=== PATIENT | male | born 1965 | race Caucasian/White ===

== ENCOUNTER 2019-05-29 23:02 | Inpatient (IN) | payer OTHER, MEDICAID ==
[~2019-05-29] VITALS: Ht 182.9 cm; Wt 70.0 kg
[~2019-05-29 23:02] MED LIST: FERROUS SULFAT325 M2 PO; HYDROCODONE/APA1 TA1 PO; PAROXETINE HCL20 M1 PO; TIVICAY50 MG PO; TRAVADA PO; TRUVADA1 TAB PO; XAN5 PO; [UNRECOGNIZED DRUG - OTHER] PO
[2019-05-29 23:09] VITALS: Ht 182.9 cm; Wt 70.0 kg
--- NOTE | 2019-05-29 23:16 | NUR ---
PT BIB [facility] FROM HOME S/P FOUND BY BROTHER IN BED. PER MEDIC, PT HAD NOTED TO BE INCONTINENT OF STOOL BY MEDICS. PT STATES 10/10 GENERALIZED PAIN WITH N/V/D, DRY COUGH AND PAINFUL URINATION X 1 WEEK. PT NOTED WITH GENERALIZED WEAKNESS. PT PLACED IN BED WITH MONITOR APPLIED. IVF FROM MEDICS RUNNING TO LFA IV WO. PT NOTED WITH DRY COUGH. PT YELLING 'I NEED WATER' REPEATEDLY. INFORMED PT THE DR HAS TO EXAM HIM FIRST BEFORE HE CAN HAVE ANYTHING PO. EXPLAINED TO PT HE IS RECEIVING FLUIDS VIA IV FOR DEHYDRATION.
[2019-05-30] VITALS (7 sets, daily range): BP systolic 97–133; BP diastolic 58–74
--- NOTE | 2019-05-30 00:29 | NUR ---
BROTHER AT BEDSIDE ASSISTING WITH CARE. RT AT BEDSIDE FOR ABG.
[2019-05-30 00:49] LABS: CALCIUM 8.1 mg/dL (8.5-10.1); CARBON DIOXIDE 22.8 mmol/L (21-32); CHLORIDE SERUM 96 mmol/L (98-107); CREATININE SERUM 1.5 mg/dL (0.7-1.3); GFR1 52 mL/min; GLUCOSE SERUM 117 mg/dL (74-106); POTASSIUM SERUM 3.5 mmol/L (3.5-5.1); SODIUM SERUM 130 mmol/L (136-145)
[2019-05-30 00:52] LABS: BASOPHIL % 0.1 % (0-2); RED CELL DISTRIBUTION WIDTH 13.9 % (11.5-14.5)
[2019-05-30 00:54] LABS: PLATELET COUNT 99 x10^3mcL (130-400)
[2019-05-30 01:01] LABS: ALKALINE PHOSPHATASE 81 U/L (46-116); ALT/SGPT 32 U/L (16-63); AST/SGOT 47 U/L (15-37); BILIRUBIN TOTAL 0.9 mg/dL (0.20-1.00); LIPASE 119 IU/L (73-393); T4(THYROXINE) 7.1 ug/dL (4.7-13.3)
[2019-05-30 01:02] LABS: ALBUMIN 2.5 g/dL (3.4-5.0); CHOLESTEROL 82 mg/dL (<200); HDL CHOLESTEROL 9 mg/dL (40-60); TOTAL PROTEIN, SERUM 8.4 g/dL (6.4-8.2)
--- NOTE | 2019-05-30 01:15 | NUR ---
PT GIVEN BED BATH WITH FRESH LINENS GIVEN.
[2019-05-30 01:17] LABS: microscopic required? YES; urine erythrocyte 3+ (NEGATIVE)
--- NOTE | 2019-05-30 01:47 | NUR ---
REPORT GIVEN TO CARLA RAGLAND.
[2019-05-30 01:52] LABS: AMPHETAMINE QUAL UR NONE DETECTED (See below)
--- NOTE | 2019-05-30 02:13 | NUR ---
PATIENT RECEIVED FROM ER.PUT IN ROOM 236 BAND MADE COMFORTABLE.TELE 4 SR/ST.WILL ADMIT PATIENT.
[2019-05-30 02:50] LABS: PHOSPHOROUS 1.3 mg/dL (2.5-4.9)
[2019-05-30 02:51] LABS: CHOLESTEROL/HDL RATIO 8.7
[2019-05-30 02:57] LABS: FREE T4 1.45 ng/dL (0.76-1.46); FREE THYROXINE INDEX 2.5 ug/dL (1.4-4.5); T3 TOTAL 0.85 ng/mL; T4(THYROXINE) 7.1 ug/dL (4.7-13.3)
--- NOTE | 2019-05-30 03:49 | NUR ---
DR CASTILLO ASKED PATIENT WHAT CODE STAUTUS,PATIENT SAYS DNR.NOTED AND RECORDED.
--- NOTE | 2019-05-30 03:50 | NUR ---
PATIENT ADMISSION ASSESSMENT COMPLETED.UA POSITIVE THC AND OPIATES.PATIENT COUGHING PRODUCTIVELY,NO SPUTUM PRODUCED.REMINDE NPO,CT ABDOMEN IN AM.PATIENT URINAL AT BEDSIDE.MRSA NASAL ISAIAH SENT TO LAB.WILL FOLLOW UP ADMIT ORDER.WILL INITIATE PLAN OF CARE.PATIENT HAS FEVER 104.IVF NS AT 120 NOW.READJUSTED.HAD 4 LITERS IN ER PER RN.ATB ALSO ZITHROMAX GIVEN IN ER.PATIENT WAS BEGGING FOR MSO4.TYLENOL GIVEN PO.ATB ADDITIONAL.WILL INITIATE PLAN OF CARE.
--- NOTE | 2019-05-30 04:39 | NUR ---
PHOS IS LOW ON ADMIT,DR CASTILLO AWARE.ALSO STO STOOL SPECIMEN FOR C DIFF,STOOL CULTURE,STOOL WBC.OB.PATIENT HAS NO BM SINCE ADMIT,WILL PUT SPAECIMEN BOTTLES IN BATHROOM,PATIENT MADE AWARE,HARD OF HEARING,NOT SURE?SELECTIVE?CAN BE MEAN AND NOT COOPERATIVE,REMINDED NPO CT ABDOMEN WITHOUT CONTRAST IN AM.WAS YELLING FOR WATER ON ADMIT,PAIN SHOT.ICE CHIPS GIVEN THEN JUST TO MOISTEN MOUTH,MSO4 GIVEN THEN.
--- NOTE | 2019-05-30 04:43 | NUR ---
BROTHER JOSE WAS HERE ON ADMIT,HELP WITH ANSWERS AND QUESTIONS,MORE PLEASANT THAN PATIENT,HE TAKES CARE OF HIM.HE FOUND HIM IN BED WITH DRY BM,GOTTEN WEAK.POOR APPETITE,PATIENT NOW ON DIETARY CONSULT.
--- NOTE | 2019-05-30 05:59 | NUR ---
I AND O MEASURED.FEVER REMANS THE SAME,ALREADY HAD ATB,BLOOD CULTURE,IVF,TYLENOL,DRAIN TILE PRESS OPERATOR AWARE.STOOL CONTAINER ALREADY IN ROOM,IN CASE HE HAS BM BEFORE SHIFT IS OVER.REMAINS NPO,CT ABDOMEN.
--- NOTE | 2019-05-30 06:07 | NUR ---
COOLING MEASURES,ICE PUT IN FOREHEAD,PATIENT COUGHING PRODUCTIVELY BUT NO SPUTUM SEEN,DRY COUGH.
--- NOTE | 2019-05-30 07:41 | NUR ---
REPORT TAKEN FROM SAMPLE TESTER NURSE AT THE BEDSIDE, PT SLEEPING, MAKING LOUD NOSIES, COUGHING, AND GROWNING. PT DID NOT RESPOND TO HIS NAME WHEN CALLED. CHEST RISE AND FALL OBSERVED, PT INCONTINENT OF LUCILA AT THIS TIME, WILL CHANGE PT'S BEDDING AND CONTINUE TO MONITOR.
--- NOTE | 2019-05-30 09:04 | NUR ---
[address] PT TAKEN DOWN TO CT SCAN AT THIS TIME
--- NOTE | 2019-05-30 09:31 | NUR ---
PT BACK FROM CT SCAN, IN NAD, RESTING AT THIS TIME.
[2019-05-30 10:01] LABS: CALCIUM 7.2 mg/dL (8.5-10.1); CARBON DIOXIDE 21.2 mmol/L (21-32); CHLORIDE SERUM 103 mmol/L (98-107); CREATININE SERUM 1.3 mg/dL (0.7-1.3); GFR1 > 60 mL/min; GLUCOSE SERUM 105 mg/dL (74-106); MAGNESIUM 1.8 mg/dL (1.8-2.4); PHOSPHOROUS 1.4 mg/dL (2.5-4.9); POTASSIUM SERUM 3.2 mmol/L (3.5-5.1); SODIUM SERUM 134 mmol/L (136-145)
[2019-05-30 12:01] LABS: RED CELL DISTRIBUTION WIDTH 14.4 % (11.5-14.5)
--- NOTE | 2019-05-30 12:12 | NUR ---
LAB CALLED TO REPORT CRITICAL LAB VALUES. DR. RED WAS PAGED AND I GAVE REPORT OF ELEVATED VALUES AT THIS TIME. NO NEW ORDERS
[2019-05-30 14:01] LABS: BAND NEUTROPHIL 7 % (0-10); BASOPHIL 0 % (0-2); MONOCYTE 3 % (0-7); SEGMENTED NEUTROPHILS 85 % (37-75); rbc morphology (normal/abnorm) NORMAL (NORMAL)
[2019-05-30 14:45] LABS: PLATELET MORPHOLOGY D
[2019-05-30 14:48] LABS: PLATELET COUNT 33 x10^3mcL (130-400)
[2019-05-30 16:07] LABS: RED CELL DISTRIBUTION WIDTH 13.8 % (11.5-14.5)
[2019-05-30 16:09] LABS: BASOPHIL % 0 % (0-2); PLATELET COUNT 89 x10^3mcL (130-400)
--- NOTE | 2019-05-30 19:20 | NUR ---
RECIEVED PT FROM DAY SHIFT RN IN NO ACUTE DISTRESS. DROWSY BUT AROUSABLE. TELE #4, SR, HR 94. BREATHING E/U. IV TO LFA, PATENT. BED IN LOWEST POSITION, 2 SIDE RAILS UP, CALL LIGHT IN REACH. INSTRUCTED TO CALL FOR ASSISTANCE.
--- NOTE | 2019-05-30 19:35 | NUR ---
REPORT GIVEN TO CAR MECHANIC HELPER NURSE CARE ENDORSED
--- NOTE | 2019-05-31 02:03 | NUR ---
RESTING IN BED WITH EYES CLOSED. BREATHING E/U. NO ACUTE DISTRESS NOTED. WILL CONTINUE TO MONITOR.
[2019-05-31 05:25] VITALS: BP 100/54
--- NOTE | 2019-05-31 07:06 | NUR ---
TEMP 101. ADMINISTERED TYLENOL PER EMAR. NO ACUTE DISTRESS NOTED. WILL ENDORSE TO ONCOMING RN.
--- NOTE | 2019-05-31 07:37 | NUR ---
REPORT TAKEN FROM BIRTH ATTENDANT NURSE, PT RESTING, WOKE TO HEAR REPORT, IN NAD, WILL CONTINUE TO MONITOR.
[2019-05-31 09:03] VITALS: BP 96/61
--- NOTE | 2019-05-31 11:57 | NUR ---
PT FOUND IN BED AT 1100, HOWEVER POOP WAS ON THE FLOOR AND THE PT IV HAD BEEN REMOVED. PT REPORTED THAT HE TRIED TO GET UP TO USE THE RESTROOM AND POOPED ON THE WAY TO THE RESTROOM. PT GOWN WAS OFF AND COVER WERE ON THE END OF THE BED. PT DENIED FALLING OR PAIN FROM TRYING TO GET UP. PT WAS AGAIN ADVISED TO CALL THE NURSE BEFORE GETTING OUT OF BED. PT WAS CLEANED, WELL THE ROOM. I ATTEMPTED TO PLACE AN IV TO THE RIGHT AC BUT WAS UNABLE DUE TO PT MOVEMENT AND AGGITATION, WELL ATTEMPT AT A LATER TIME.
[2019-05-31 12:44] VITALS: BP 145/55
--- NOTE | 2019-05-31 13:40 | NUR ---
1. Recommend continuing clear liquid diet along with Ensure clear TID.
--- NOTE | 2019-05-31 13:40 | NUR ---
Initial Nutrition Assessment: 236T/B WHITNEY MOTA IA HR Dx: generalized weakness, hyponatremia PMHx: HIV/AIDS, HIV dementia, depression, Chronic Diarrhea, Skin Cancer PSHx: Other, Thoracix surgery Labs: NA 134L, K 3.2L, BUN 24H, P 1.4L Meds: Flagyl, phoslo, reglan, zofran Diet: Clear liquid PO Intake: (05/30) breakfast 0% Ht: 182.88 cm (72") Wt: 70 kg (154#) BMI: 20.9 kg/m2 Bed scale: 70 kg IBW: 178# (80.9 kg) %IBW: 86 UBW: unable to access Age: 53/M Food Allergies: NKFA Skin: redness to perianal area Jose: 15 Edema: none GI: loose stools Last BM: 05/31 Trigger: appears underweight/malnourished, N/V/D/ >3d, unintentional wt loss >10# x 1 month, poor PO >3d Per H&P, Pt is a 53 year old male with PMH of HIV/AIDS, HIV dementia, depression, was brought to the ED by ambulance from home after he was found in bed by his brother. Patient complains of generalized weakness associated with nausea, vomiting, diarrhea, and productive cough with white non-bloody sputum, fever, chills. RDN Visit (05/31): Patient was very lethargic and sleepy. ELLYN Warren was at bedside. He said that patient is extremely sleepy and that is patients' baseline therefore communication will not be possible at this time. ELLYN Warren said that patient did not drink anything for breakfast this morning and drank some broth and ensure clear yesterday for dinner. FNS received consult for "HIV" on 05/30/19. Per progress note (05/30) Patient was admitted for sepsis due to acute colitis with AIDS, Still complaining of diarrhea, abdomoinal pian,tingling and burinig in both legs and feet,generalized weaknesss and dry cough. Problem with: N/V/D/C: diarrhea Problems with: Chewing/Swallowing: unable to access Current appetite: unable to access Recent wt change: unable to access %wt change: N/A Vitamin/Supplement use: unable to access Special diet at home: unable to access Physical activity: unable to access Nutrition education given: Not appropriate at this time. Left [facility] handout on "HIV/AIDS managing diarrhea" by bedside for family members. Food-drug interactions: none Education given: no Estimated Nutritional Needs Based on actual body weight 70 kg Energy: 1521-7661 kcal/d (30-35 kcal/kg) - AIDS Protein: 70-105 g/d (1.0-1.5 g/kg) - AIDS Fluid: 6195-3289 ml/d (1 ml/kcal) or per doctor Nutrition Diagnosis 1. Inadequate energy intake related to poor PO as evidenced by documented PO 0% 2. Altered GI function related to AIDS as evidenced by diarrhea. Intervention 1. Recommend continuing clear liquid diet along with Ensure clear TID. Monitor/Evaluate Goal: PO intake at least 75% of estimated needs Monitor: PO intake, Labs, GI function F/U in 2-3 days as high risk 06/02-
[2019-05-31 16:20] VITALS: BP 109/58
--- NOTE | 2019-05-31 17:40 | NUR ---
PATIENTS FAMILY AT THE BEDSIDE, DISCUSSED COLONOSCOPY WITH PT AND HIS BROTHER TO TRY AND OBTAIN CONSENT. THE PT VERBALIZED THAT HE WILL "NOT LIVE THROUGH THE PROCEDURE." HE STATED THAT HE HAS HAD OVER 15 COLONOSCOPY PROCEDURES AND DOES NOT WANT ANOTHER ONE AT THIS TIME. PT ALSO REPORTED THAT HE DOES NOT WANT TO BE IN PAIN. I ADVISED THE PT OF HOW MODERATE SEDATION WORKS AND THAT HE WILL NOT ONLY NO BE IN PAIN, BUT THAT HE WONT REMEMBER MUCH OF THE PROCEDURE ITS SELF. I DID TELL HIM THAT SOME DISCOMFORT MAY OCCUR WITH ANY INVASIVE PROCEDURE, BUT WE OUT GI TEAM IS VERY GOOD AT MINIMIZING DISCOMFORT. I TOLD THE PT AND HIS BROTHER THAT WE WILL GIVE THEM TIME TO CONSIDER THE PROCEDURE AND CHECK AGAIN LATER TO SIGN THE CONSENT.
--- NOTE | 2019-05-31 18:48 | NUR ---
PATIENT TOLERATED TREATMENT WELL DURING THE SHIFT, STILL WITH DIARRHEA, HOWEVER AFEBRILE AT THIS TIME. PT IS REFUSING COLONOSCOPY AT THIS TIME, WILL REPORT TO KNIFE FINISHER NURSE AND ENDORSE CARE.
--- NOTE | 2019-05-31 20:00 | NUR ---
RECEIVED PT IN BED, WITH BROTHER AT THE BEDSIDE. DROWSY, SLOW TO VERBAL RESPONSE. ABLE TO VERBALIZE NEEDS. RESP. EVEN AND UNLABORED. LUNG SOUNDS CLEAR BILAT. ON ROOM AIR, WITH OCCASIONAL NON PRODUCTIVE COUGH, NO ACUTE DISTRESS NOTED. SR/ST ON THE MONITOR, DENIES CP OR PRESSURE. IVF, D51/2NS WITH 20MEQ KCL AT 80ML/HR, INTACT AND INFUSING VIA LW, SITE CLEAR. WITH GEN. WEAKNESS, ABLE TO REPOSITION SELF IN BED. REDNESS TO PERIANAL/SACRAL AREAS, OPTIFOAM APPLIED. CALL LIGHT WITHIN REACH. WILL CONTINUE TO MONITOR.
--- NOTE | 2019-05-31 20:35 | NUR ---
COMPLAINED OF GEN. BODY PAIN, 6/10, AND TEMP ALSO SHOWS 101.6, NORCO PO GIVEN ORDERED. COOLING MEASURES APPLIED. PT REMAINS ON IV ANTIBIOTICS. WILL CONTINUE TO MONITOR.
[2019-05-31 21:45] VITALS: BP 140/73
--- NOTE | 2019-05-31 22:17 | NUR ---
PT DOOZING OF AND ON, STATES PAIN RELIEF. TEMP. RECHECK SHOWS 100.7. WILL CONTINUE TO MONITOR.
--- NOTE | 2019-05-31 23:50 | NUR ---
COMPLAINED OF GEN. BODY PAIN ,05/02, REQUESTING PAIN MED, MEDICATED WITH NORCO PO ORDERED.
--- NOTE | 2019-06-01 | NUR ---
RECEIVED PT IN BED ASLEEP BUT EASILY AROUSABLE.NO DISTRESS NOTED.NO S/S OF PAIN AT THIS TIME. BED IN LOWEST POSITION,CALL LIGHT WITHIN REACH. WILL CONTINUE TO MONITOR.
--- NOTE | 2019-06-01 00:01 | NUR ---
ASSISTED TO BEDSIDE COMMODE FOR BOWEL FUNCTION. GOOD PERICARE RENDERED. KEPT CLEAN AND DRY.
--- NOTE | 2019-06-01 00:05 | NUR ---
PT,S CARE ENDORSED TO ELLYN LACY.
[2019-06-01 04:33] VITALS: BP 119/67
--- NOTE | 2019-06-01 05:15 | NUR ---
PT HAS TEMP 103. MEDICATED TYLENOL 650MG PO ORDERED.INITIATED COOLING MEASURES.WILL CONTINUE TO MONITOR.
--- NOTE | 2019-06-01 05:33 | NUR ---
PT APPEARS TO BE SLEEPING.NO SOB NOTED. NO S/S OF PAIN. MEDICATED TYLENOL FOR FEVER.BED IN LOWEST POSITION,CALL LIGTH WITHIN REACH. WILL CONTINUE TO MONITOR.
[2019-06-01 06:35] LABS: CALCIUM 7.6 mg/dL (8.5-10.1); CARBON DIOXIDE 23.5 mmol/L (21-32); CHLORIDE SERUM 103 mmol/L (98-107); CREATININE SERUM 1.1 mg/dL (0.7-1.3); GFR1 > 60 mL/min; GLUCOSE SERUM 112 mg/dL (74-106); POTASSIUM SERUM 3.4 mmol/L (3.5-5.1); SODIUM SERUM 135 mmol/L (136-145)
[2019-06-01 06:48] LABS: PLATELET COUNT 70 x10^3mcL (130-400); RED CELL DISTRIBUTION WIDTH 14.6 % (11.5-14.5)
[2019-06-01 06:49] LABS: BASOPHIL % 0 % (0-2)
--- NOTE | 2019-06-01 07:03 | NUR ---
CARE ENDORSED TO DAY NURSE CHRIS.
--- NOTE | 2019-06-01 07:03 | NUR ---
RECHECKED TEMP 98.1. WILL CONTINUE TO MONITOR.
--- NOTE | 2019-06-01 07:13 | NUR ---
REPORT TAKEN FROM MAINTENANCE TECH NURSE AT THE BEDSIDE, PT SLEEPING AT THIS TIME AND DID NOT AWAKE FOR REPORT, CHEST RISE AND FALL OBSERVED, FLUIDS RUNNING TO LEFT WRIST, NO SIGNS OF INFILTRATION OBSERVED, WILL CONTINUE TO MONITOR.
--- NOTE | 2019-06-01 08:01 | NUR ---
PT IS NOW CONSENTING TO COLONOSCOPY. PT SIGNED CONSENT FORMS. I CALLED GI LAB AND SPOLE TO CHRIS TO MAKE HER AWARE, I ALSO SPOKE TO DR. FELICIANO TO MAKE HIM AWARE. WILL CONTINUE TO MONITOR. CONSENT ADDED TO CHAT.
[2019-06-01 08:40] VITALS: BP 121/80
[2019-06-01 12:15] VITALS: BP 118/65
[2019-06-01 16:59] VITALS: BP 95/66
--- NOTE | 2019-06-01 19:33 | NUR ---
REPORT GIVEN TO TREAD CUTTER NURSE CARE ENDORSED
--- NOTE | 2019-06-01 19:47 | NUR ---
RECEIVEDA AWAKE, WITH SLOW THOUGHT PROCESS, SLOW TO RESPOMD, HARD OF HEARING. SKIN WARM AND DRY TO TOUCH WITH REDNESS AT THE PERINEAL/SACRAL AREA. JUST [id number] BOWEL PREP 1ST BOTTLE FODR COLONOSCOPY IN AM. IVF D5/12NS WITH 20MEQ KCL AT 80CC/HR INFUSING VIA PERIPHERAL LINE AT THE LEFT WRIST TOLERATING WELL. PAIN LEVEL 2/10, BEARABLE AT THIS TIME. WILL CONTINUE TO MONITOR.
--- NOTE | 2019-06-01 21:00 | NUR ---
DUE MEDCATIOMNS GIVEN AND WELL TOLERATED. TOLERATED ORAL FLUIDS. CALL LIGHT WITHIN REACH.
[2019-06-01 21:41] VITALS: BP 125/76
[2019-06-01 22:00] VITALS: BP 120/70
--- NOTE | 2019-06-01 23:56 | NUR ---
IV ACCESS AT THE LEFT WRIST LEAKING, STARTED A NEW IV ACCESSM AT THE LAC USING G#20 WITH GOOD BLOOD FLOW RETURN. CONTINUES ON ATB IVPB ORDERED. MO ADVERSE REACTION NOTED. 2ND BOTTLE OF THE BOWEL PREP COSUMED. WILL CONTINUE TO MONITOR.
[2019-06-02] VITALS: BP 121/80
--- NOTE | 2019-06-02 06:24 | NUR ---
INSTURCTEDE TO REMAIN NPO FOR COLONOSCOPY TODAY. KEPT CLEAN AND DRY. PT KEEPS ON PULLING OUT IV ACCESS, PT UNCOIOPERATIVE WITH PALN OF CARE.
[2019-06-02 07:07] VITALS: BP 124/83
--- NOTE | 2019-06-02 07:09 | NUR ---
PT PULLED OUT IV ACCESS AT THE LAC AREA FOR THE 5TH TIME, RESTARTED IV G#20 AT THE RIGHT HAND WITH GOOD BLOOD FLOW RETURN. IVF D5 1/2NS WITH 20MEQKCL CONNECTED. KEPT CLEAN AND DRY.
--- NOTE | 2019-06-02 07:15 | NUR ---
RECEIVED PT IN BED, SLEEPING, IN NO APPARENT ACUTE DISTRESS, FOLLOWED VERBAL COMMAND, KLAMATH, FAROESE, RESP EVEN AND NON-LABORED, ON 2L/MIN, CHEST RISE SYMMETRICALLY, ABD FLAT AND NON-TENDER, NPO SINCE MIDNIGHT FOR COLONOSCOPY PROCEDURE AT 0930 ON 06/02, AMBULATORY WITH ASSIST, ABLE TO MOVE ALL EXTREMITIES, INCONTINENT, REDNESS TO SACRO AND PERINEAL AREA, OPTIFIOAM DRESING C/D/I, IV PATENT AND INFUSING WELL, PALP PULSES, CAP REFILL < 3 SECS, SKIN W/D/C, ALL NEEDS MET, SAFETY PROCATION FOLLOWED, CONTINUE TO MONITOR
--- NOTE | 2019-06-02 08:10 | NUR ---
PT IN NO ACUTE DISTRESS, P/U BY GI MASONRY TEACHER FOR COLONOSCOPY APPT, CONTINUE TO MONITOR
[2019-06-02 08:33] VITALS: BP 105/63
--- NOTE | 2019-06-02 10:29 | NUR ---
PT BACK FROM COLONOSCOPY PROCEDURE, IN NO ACUTE RESP DISTRESS, SLEEPING IN BED, LYING TO (L) SIDE, V/S NOTED 92/60 (69), 83, 98% AT 2L/MIN VIA NC, 98.0, 16, CHARGE NURSE AND JENNIR RN AWARE, CONTINUE TO MONITOR
--- NOTE | 2019-06-02 11:09 | NUR ---
I HAVE REVIEWED THE DATA COLLECTION BY ELLYN CHAPMAN (NAME):NAZARIO [place]O ENTERED ON (DATE/TIME):06/02/19 5686 I CONCUR WITH THE DATA AND ANY EXCEPTIONS OR COMMENTS ARE LISTED BELOW:
--- NOTE | 2019-06-02 11:29 | NUR ---
ASSISTED PT TO BSC, VOID X1, ASSISTED BACK TO BED, IN NON ACUTE RESP DISTRESS, SAFETY PRECAUTION FOLLWED, CONTINUE TO MONITOR
--- NOTE | 2019-06-02 11:50 | NUR ---
CALLED AND TALKED TO [id number] PHARMACIST AT [phone] [place] TO CLARIFY HOME MED PRESCRIPTION FOR PT WHEN AT HOME, PER PHARMACIST, PT DID NOT HAVE ANY MED ON HOME MED LIST PRESCRIBED AND REFIL FROM THE FAMILY PHYCICIAN, PT ONLY HAVE LEXAPRO AND TRAZODONE, PER PHARMACIST, PT DID NOT TAKE CERTAIN PAIN MED FOR SEVERAL MONTH, PT DID NOT TAKE NORCO 5/325MG SINCE 11/2018, NO HIV MED WAS PRESCRIBED AND REFILLED AT THIS LOCATION, CHARGE NURSE KEMAR PORTER RN AND BASILIA LOAD TEST MECHANIC MADE AWARE
--- NOTE | 2019-06-02 12:10 | NUR ---
Recommend Neutropenic regular diet w/ Ensure Enlive BID.
--- NOTE | 2019-06-02 12:10 | NUR ---
Follow-up Nutrition Assessment: 236/B WHITNEY MOTA FU HR Dx: generalized weakness, hyponatremia PMHx: HIV/AIDS, HIV dementia, depression, Chronic Diarrhea, Skin Cancer Labs: (06/01) NA 135L, K 3.4L, BG 112H, CA 7.6L Meds: Flagyl, phoslo, reglan, zofran Diet: NPO (planned procedure- colonoscopy) PO Intake: (05/31) lunch, dinner- 40% each (CLD diet) Weights: (05/30) 70 kg, (06/02) 69 kg Skin: redness to perianal/sacral area Jose: 15 I/Os: (06/01) 2980/402 (1088) Edema: none GI: intermittent loose bowel movement Last BM: 05/31 RDN Visit (06/02): Patient was alert and oriented. Patient's diet has been progressed to Regular. Patient was NPO and Clear liquid diet before. Patient had colonoscopy today. Discussed recommendations with PRE SALES ARCHITECT Ivelisse. Patient has poor appetite. Estimated Nutritional Needs Based on actual body weight 70 kg Energy: 2908-3769 kcal/d (30-35 kcal/kg) - AIDS Protein: 70-105 g/d (1.0-1.5 g/kg) - AIDS Fluid: 2834-1578 ml/d (1 ml/kcal) or per doctor Nutrition Diagnosis 1. Inadequate energy intake related to poor PO as evidenced by documented PO 0%. (ongoing) 2. Altered GI function related to AIDS as evidenced by diarrhea.(ongoing) Intervention 1. Recommend Neutropenic regular diet w/ Ensure Enlive BID. Monitor/Evaluate Goal: Have pt meet at least 75% of estimated needs Monitor: PO intake, Labs, GI function F/U in 2-3 days as high risk 06/04-
[2019-06-02] MEDS ORDERED: NORCO1 TA2 PO (12:21)
[2019-06-02] MEDS ORDERED: TRAZODONE50 M1 PO (12:23)
[2019-06-02] MEDS ORDERED: LEXAPRO5 M1 PO (12:23)
--- NOTE | 2019-06-02 12:45 | NUR ---
VISITED BY BROTHER KATI, QUESTIONS ASKED AND ANSWERED, NO FURTHER CONCERNS NEEDED WHEN ASKED, PT HAD LUNCH, ALL NEEDS MET AT THIS TIME, CONTINUE TO MONITOR
[2019-06-02 14:44] VITALS: BP 91/58
--- NOTE | 2019-06-02 15:15 | NUR ---
PT SLEEPING IN BED, IN NO ACUTE DISTRESS, RESP EVEN AND NON-LABORED, SAFETY PROTOCOL [id number], CONTINUE TO MONITOR
--- NOTE | 2019-06-02 16:50 | NUR ---
PT IN BED, INCONTINENT X 1, ASSISTED TO CHANGED AND CLEAN PT, SKIN D/W/C, RESTING IN BED WITH NO ACUTE RESP DISTRESS, ALL NEEDS MET, SAFETY PRECAUTION MET, CONTINUE TO MONITOR
[2019-06-02 17:23] VITALS: BP 91/53
--- NOTE | 2019-06-02 17:24 | NUR ---
PT REQUESTED SPRITE SODA AND PUDDING, RESPECTED, ASSISTED WITH FEEDING AT THIS TIME, CONSUMED 100%, PT RESTING IN BED, IN NO ACUTE DISTRESS, ALL NEEDS MET, SAFETY PROTOCOL FOLLOWED, CONTINUE TO MONITOR
--- NOTE | 2019-06-02 18:13 | NUR ---
PT RESTING IN BED, IN NO ACUTE RESP DISTRESS, NO FACIAL DROOP/SLURRED SPEECH NOTED, RESP EVEN AND NON-LABORED, CHEST RISE SYMMETRICALLY, IV PATENT AN INFUSING WELL, ALL NEEDS MET, MEDINA LIGHT IN REACH, BED AT LOW POSITION, RAILS X2, WILL ENDORSE TO ONCOMING RN
--- NOTE | 2019-06-02 19:30 | NUR ---
RECIEVED PATIENT AT START OF SHIFT ONLY ORIENTED TO HIMSELF AND PLACE. PATIENT APPEARS VERY SLOW AND SLEEPY. PATIENT USED URINAL, DARK HELEN URINE. NO SOB ON 2L NC. LUNGS CTAB. IV IS NOW SALINE LOCKED. OPTIFOAM IN PLACE TO COCCYX. BED LOCKED AND IN LOWEST POSIITON. CALL LIGHT AND BEDSIDE TABLE WITHIN REACH. BED ALARM ON.
[2019-06-02 21:02] VITALS: BP 128/79
--- NOTE | 2019-06-02 23:30 | NUR ---
PATIENT IS AWAKE. OFFERED URINAL AND PROVIDED WITH WATER. IV INFUSING ANTIBIOTICS WITH OUT ERYTHEMA OR INFILTRATION.
[2019-06-03 05:44] VITALS: BP 119/66
[2019-06-03 06:18] LABS: BASOPHIL % 0.3 % (0-2)
[2019-06-03 06:36] LABS: CALCIUM 7.9 mg/dL (8.5-10.1); CARBON DIOXIDE 19.4 mmol/L (21-32); CHLORIDE SERUM 104 mmol/L (98-107); CREATININE SERUM 0.9 mg/dL (0.7-1.3); GFR1 > 60 mL/min; GLUCOSE SERUM 94 mg/dL (74-106); SODIUM SERUM 134 mmol/L (136-145)
--- NOTE | 2019-06-03 06:41 | NUR ---
PATIENT SLEPT WELL THROUGH THE NIGHT. SAFETY AND COMFORT MAINTAINED THROUGHOUT SHIFT. IV IS SALINE LOCKED AND PATENT. BED LOCKED AND IN LOWEST POSIITON. BED ALARM ON. WILL ENDORSE CARE TO DAY SHIFT NURSE.
--- NOTE | 2019-06-03 07:00 | NUR ---
RECEIVED PT FROM HISTORY FACULTY MEMBER NURSE. PT IN BED SLEEPING, AROUSABLE, RESP E/U ON NC RESERVOIR AT 2 LPM. NO ACUTE DISTRESS NOTED. IV TO LAC W/ NO SIGNS OF INFILTRATION, IVF INFUSING WELL. BED IN LOWEST POSITION AND CALL LIGHT WITHIN REACH. WILL CONTINUE TO MONITOR.
[2019-06-03 07:17] LABS: PLATELET COUNT 62 x10^3mcL (130-400); RED CELL DISTRIBUTION WIDTH 14.7 % (11.5-14.5)
--- NOTE | 2019-06-03 08:25 | NUR ---
PT TEMP 100.5 AT THIS TIME. NO PAIN OR N/V NOTED. MEDICATED ORDERED W/ PRN TYLENOL. COOLING MEASURES IMPLEMENTED. WILL CONTINUE TO MONITOR.
[2019-06-03 08:29] VITALS: BP 111/57
--- NOTE | 2019-06-03 12:51 | NUR ---
PT REFUSED MEDS AT THIS TIME. ENCOURAGED TO EAT LUNCH BUT HAD NO APPETITE, STATED HE JUST WANTED TO REST. PT AOX2, APPEARED DROWSY, RESP E/U ON RA. BED IN LOWEST POSITION AND CALL LIGHT WITHIN REACH. WILL CONTINUE TO MONITOR.
--- NOTE | 2019-06-03 13:00 | NUR ---
PT SALINE LOCKED, ASSISTED TO WHEELCHAIR, BROUGHT DOWN FOR CT-SCAN AT THIS TIME.
[2019-06-03 16:58] VITALS: BP 95/57
--- NOTE | 2019-06-03 17:45 | NUR ---
PT RESTING IN BED, AOX2, LETHARGIC, RESP E/U ON RA. ASSISTED W/ INCONTINENCE CARE AT THIS TIME, MODERATE AMOUNT OF SOFT, DARK BROWN BM NOTED. Z-GUARD APPLIED TO PERINEUM. CALM AND COMPLIANT W/ MED ADMINISTRATION. BED IN LOWEST POSITION AND CALL LIGHT WITHIN REACH. FAMILY MEMBER ASSISTING PT W/ DINNER. WILL ENDORSE TO ONCOMING NURSE.
--- NOTE | 2019-06-03 19:15 | NUR ---
CARE ASSUMED FROM OUTGOING RN. PT ASLEEP IN BED. NO ACUTE DISTRESS NOTED. EVEN AND UNLABORED RESPIRATIONS ON RA. IVL INTACT. BED IN LOWEST POSITION. SIDE RAILS UPX2. CALL LIGHT WITHIN REACH. WILL CONTINUE TO MONITOR.
[2019-06-03 21:00] VITALS: BP 100/61; BP 102/66
--- NOTE | 2019-06-04 00:35 | NUR ---
PT RESTING IN BED. NO ACUTE DISTRESS NOTED. EVEN AND UNLABORED RESPIRATIONS ON RA. IV PATENT AND INTACT RUNNING ANTIBIOTICS PER EMAR. MAINTENANCE ENGINEER CLEANED PT, Z GUARD AND OPTIFOAM APPLIED. GOWN AND LINEN CHANGED. PT TOLERATED WELL. BED IN LOWEST POSITION. SIDE RAILS UPX2. CALL LIGHT WITHIN REACH. WILL CONTINUE TO MONITOR.
[2019-06-04 06:32] LABS: BASOPHIL % 0.1 % (0-2)
--- NOTE | 2019-06-04 06:33 | NUR ---
PT SLEPT IN INTERVALS THROUGHOUT THE SHIFT. EVEN AND UNLABORED RESPIRATIONS NOTED. IVL PATENT AND INTACT. ALL NEEDS TENDED TO AND MET. ALL SCHEDULED MEDICATIONS GIVEN. TEMP OF 100.4 MEDICATED PER EMAR. CURRENT TEMP 99.0. PT CLEANED. LINEN AND GOWN CHANGED. OPTIFOAM TO SACRAL AREA CDI. Z GUARD APPLIED TO PERINEUM. BED IN LOWEST POSITION. SIDE RAILS UPX2. CALL LIGHT WITHIN REACH. WILL ENDORSE TO ONCOMING SHIFT.
--- NOTE | 2019-06-04 07:02 | NUR ---
RECEIVED PT FROM CADDIE NURSE. PT IN BED SLEEPING, AROUSABLE, RESP E/U ON RA. NO ACUTE DISTRESS NOTED. SALINE LOCKED TO LAC W/ NO ERYTHEMA OR EDEMA. BED IN LOWEST POSTION AND CALL LIGHT WITHIN REACH. WILL CONTINUE TO MONITOR.
[2019-06-04 07:21] LABS: PLATELET COUNT 66 x10^3mcL (130-400); RED CELL DISTRIBUTION WIDTH 14.8 % (11.5-14.5)
[2019-06-04 07:23] LABS: CALCIUM 7.3 mg/dL (8.5-10.1); CARBON DIOXIDE 27.3 mmol/L (21-32); CHLORIDE SERUM 102 mmol/L (98-107); GFR1 > 60 mL/min; GLUCOSE SERUM 98 mg/dL (74-106); POTASSIUM SERUM 3.2 mmol/L (3.5-5.1); SODIUM SERUM 136 mmol/L (136-145)
[2019-06-04 08:01] VITALS: BP 110/61
--- NOTE | 2019-06-04 11:23 | NUR ---
PT RESTING IN BED, AOX2, LETHARGIC, RESP E/U ON RA. NO ACUTE DISTRESS NOTED. CALM AND COMPLIANT W/ CARE AT THIS TIME. BED IN LOWEST POSTION AND CALL LIGHT WITHIN REACH. PT BROTHER AT BEDSIDE. WILL CONTINUE TO MONITOR.
[2019-06-04 12:13] VITALS: BP 116/63
[2019-06-04] MEDS ORDERED: TIVICAY50 MG PO (12:27)
[2019-06-04] MEDS ORDERED: DESCOVY 200-251 EACH PO (12:32)
[2019-06-04 15:55] VITALS: BP 120/66
--- NOTE | 2019-06-04 17:54 | NUR ---
PT IN BED HAVING DINNER, AOX2, RESP E/U ON RA. APPEARED MORE AWAKE SINCE PREVIOUSLY, SHOWED IMPROVED APPETITE. CALM AND COMPLIANT W/ CARE AT THIS TIME. NO ACUTE DISTRESS NOTED. SALINE LOCK TO LAC W/ NO ERYTHEMA OR EDEMA. BED IN LOWEST POSITION AND CALL LIGHT WITHIN REACH. WILL ENDORSE TO ONCOMING NURSE.
[2019-06-04 19:13] VITALS: BP 109/62
--- NOTE | 2019-06-04 19:55 | NUR ---
RECEIVED PT IN BED AAOX2 HX OF DEMENTIA AND DEPRESSION , PT DENY PAIN AT THE MOMENT , C/O LOOSE STOOL SEVERAL TIMES TODAY , WILL MONITOR PT'S BOWEL , ABD SOFT BS HYPERACTIVE X4, SKIN WARM TO TOUCH SOME ERYTHEMA NOTED TO NIVIA AREA WILL KEEP PT SKIN CLEAN AND DRY AT ALL TIME , HL TO LAC INTACT FLUSHING WELL .
--- NOTE | 2019-06-05 00:53 | NUR ---
PT PULLED IV OUT ACCIDENTLY 4*4 APPLIED TO THE OLD IV SITE . 22G INSERT TO RIGHT FA. PT TOLERATED WELL .
--- NOTE | 2019-06-05 03:24 | NUR ---
PT'S IN BED AWAKE NO ACUTE DISTRESS NOTED.
[2019-06-05 05:26] VITALS: BP 114/69
--- NOTE | 2019-06-05 06:30 | NUR ---
I HAVE REVIEWED THE DATA COLLECTION BY AIR QUALITY TECHNICIAN (NAME):YONIS FABIAN ENTERED ON (DATE/TIME): I CONCUR WITH THE DATA AND ANY EXCEPTIONS OR COMMENTS ARE LISTED BELOW:
--- NOTE | 2019-06-05 06:32 | NUR ---
NO CHANGES OF CONDITION NOTED, ALL DUE MEDS GIVEN NO REACTION NOTED, HL INTACT CALL LIGHT WITHIN PT'S REACH .
[2019-06-05 06:46] LABS: BASOPHIL % 0.1 % (0-2)
[2019-06-05 07:11] LABS: CALCIUM 7.6 mg/dL (8.5-10.1); CARBON DIOXIDE 25.8 mmol/L (21-32); CHLORIDE SERUM 102 mmol/L (98-107); CREATININE SERUM 0.9 mg/dL (0.7-1.3); GFR1 > 60 mL/min; GLUCOSE SERUM 97 mg/dL (74-106); POTASSIUM SERUM 3.3 mmol/L (3.5-5.1); SODIUM SERUM 137 mmol/L (136-145)
--- NOTE | 2019-06-05 07:24 | NUR ---
REPORT TAKEN FROM FLOOR TRADER NURSE, PT RESTING AT THIS TIME AND DID NOT WAKE FOR REPORT, CHEST RISE AND FALL OBSERVED. PT IS HEP LOCKED AT THIS TIME TO THE RIGHT WRIST/FOREARM. WILL CONTINUE TO MONITOR.
[2019-06-05 07:33] LABS: PLATELET COUNT 84 x10^3mcL (130-400); RED CELL DISTRIBUTION WIDTH 14.9 % (11.5-14.5)
[2019-06-05 07:40] VITALS: BP 119/68
--- NOTE | 2019-06-05 11:26 | NUR ---
Follow-up Nutrition Assessment- Dx: generalized weakness, hyponatremia Labs: (06/05) Na 137, K 3.3 L, ZGlu 97, BUN 10, Cr 0.9, A1c 5.9, H/H 9.02/16 Meds: Bactrim, Cipro, Klor-con, Metamucil, [place], PhosLo, Tylenol, Zithromax, Zofran Diet: Regular PO Intakes: (06/04) D: 100%, L: 30%, B: 80%; (06/03) B: 80%; (06/02) D: 25%, L: 80%, B: NPO; overall average = 65% x 3 meals. This provides 1752 kcal and 78 gm protein to meet 83% est kcal (adequate) and 74% est protein needs (inadequate). Pt receives Ensure Enlive BID to help meet estimated needs. Weights: (05/30) 70 kg, (06/02) 69 kg; No new weights taken Skin: redness to perianal/sacral area Edema: none noted Jose: 15 Last BM: 06/04/19 x 1 Per Progress Note, Pt was seen and examined by [employer] [place], awake, alert, no apparent distress at time of visit. Brother at bedside. Plan for lumbar puncture ordered to r/o [employer] infection, continue abx as per ID. Pt seen asleep, unable to awaken by calling name. Ensure Enlive seen at bedside, multiple bottles unopen, unused. Estimated Nutritional Needs unchanged from prior assessment: Energy: 9691-6728 kcal/d (30-35 kcal/kg; AIDS) Protein: 70-105 gm/d (1.0-1.5 gm/kg; AIDS) Fluid: 2306-2693 mL/d (1 mL/kcal) or per doctor Nutrition Diagnosis 1. Inadequate energy intake related to poor PO as evidenced by documented PO 0%. (Ongoing) 2. Altered GI function related to AIDS as evidenced by diarrhea. (Ongoing) Intervention/RDN Recommendation(s): 1. Continue on neutropenic regular diet as tolerated. 2. Continue on Ensure Enlive BID as tolerated. This provides additional 700 kcal and 120 gm protein to help meet needs. Monitor/Evaluate Goal: Intake via PO intakes to meet at least 75% of estimated needs with acceptable tolerance within 2-3 days. Monitor: PO intakes and/or nutrition support tolerance, Labs, GI function, Skin integrity, Weights. F/U in 2-3 days as high risk (06/07-)
[2019-06-05 11:43] VITALS: BP 115/67
[2019-06-05 15:49] VITALS: BP 110/63
--- NOTE | 2019-06-05 16:41 | NUR ---
PT UP OUT OF BED WITH WALKER AT THIS TIME, DENIED DIZZINESS, JUST WEAKNESS. STEADY GAIT WITH HIS BROTHER TO HIS SIDE TO ASSIST. PT'S BROTHER ADVISED TO PULL A CHAIR FROM ANY ROOM TO GIVE TO THE PT SO THAT HE CAN REST IF NEEDED. ADVISED TO ONLY AMBULATE TO THE END OF THE [facility] AND BACK TO THE PT'S ROOM APROX. 30-40 FEET.
[2019-06-05 19:25] VITALS: BP 94/52
--- NOTE | 2019-06-05 19:30 | NUR ---
PT IS A/O x4. QUINAULT. MED SURG. DENIES ANY CHEST PAIN OR PRESSURE. PULSES ARE PRESENT. NO EDEMA NOTED. LUNGS CLEAR IN ALL FEILDS. ON RA, DENIES ANY SOB. EQUAL CHEST RISE AND FALL. NO SIGN OF RESP DISTRESS. BOWEL SOUNDS PRESENT. DENIES ANY ABD DISTRESS. OPTIFOAM AND Z GUARD ON COCCYX AND ONLY Z GUARD ON PERINEUM AREA. DENIES ANY PAIN AT THIS TIME. SALINE LOCKED ON RFA, CLEAN AND INTACT. BED IS AT LOWEST SETTING. CALL LIGHT WITHIN REACH. WILL CONTINUE TO MONITOR.
--- NOTE | 2019-06-06 01:24 | NUR ---
PT IS RESTING IN BED WITH BOTH EYES CLOSED. NO SIGN OF DISTRESS NOTED. BREATHING EVEN AND UNLABORED. NO SIGN OF DISTRESS NOTED. BED IS AT LOWEST SETTING. CALL LIGHT WITHIN REACH. WILL CONTINUE TO MONITOR.
[2019-06-06 04:58] VITALS: BP 117/63
--- NOTE | 2019-06-06 06:26 | NUR ---
PT IS RESTING IN BED WITH BOTH EYES CLOSED. NO SIGN OF DISTRESS NOTED. NO ACUTE EVENT OCCURED AT NIGHT. BED IS AT LOWEST SETTING. CALL LIGHT WITHIN REACH. WILL ENDORSE TO AM NURSE.
[2019-06-06 07:09] LABS: BASOPHIL % 0.1 % (0-2)
[2019-06-06 07:13] LABS: PLATELET COUNT 115 x10^3mcL (130-400); RED CELL DISTRIBUTION WIDTH 15.1 % (11.5-14.5)
[2019-06-06 07:15] LABS: CALCIUM 7.4 mg/dL (8.5-10.1); CARBON DIOXIDE 28.2 mmol/L (21-32); CHLORIDE SERUM 105 mmol/L (98-107); CREATININE SERUM 0.9 mg/dL (0.7-1.3); GFR1 > 60 mL/min; GLUCOSE SERUM 94 mg/dL (74-106); POTASSIUM SERUM 3.2 mmol/L (3.5-5.1); SODIUM SERUM 141 mmol/L (136-145)
[2019-06-06 07:24] VITALS: BP 105/60
--- NOTE | 2019-06-06 11:05 | NUR ---
BACK FROM RADIOLOGY DEPT, HE IS LAYING FLAT ON HIS BACK, HE UNDERSTANDS TO LAY ON HIS BACK FOR AT LEAST AN HOUR TO AVOID A HEADACHE FROM SITTING UP TOO SOON. HE TOLERATED WELL, NO COMPLAINTS.
[2019-06-06 15:58] LABS: APPEARANCE CSF CLEAR; COLOR CSF COLORLESS; SOURCE FLUID CSF; WBC CSF 0 /cumm (0-5)
[2019-06-06 15:59] LABS: RBC CSF 550 /cumm (0)
--- NOTE | 2019-06-06 17:37 | NUR ---
AAO TIMES 4. GOOD APPETITE. MED SURG PATIENT. COOPERATIVE. IV SITE CDI, PATENT. NO C/O PAIN. NO SOB. TURNS HIMSELF. NO VISITORS TODAY.
--- NOTE | 2019-06-06 19:40 | NUR ---
RECIEVED PT FROM DAY NURSE. PT LAYING IN BED. NO COMPLAINTS OF PAIN AT THIS TIME. BREATHING EVEN AND UNLABORED ON ROOM AIR. NO COMPLAINTS OF SOB. DENIES CHEST PAIN, N/V, DIZZINESS, AND PALPATATIONS. ABD SOFT AND ROUND, NO PAIN TO PALPATION. RFA IV CDI. BED AT LOWEST POSITION. CALL LIGHT WITHIN REACH. WILL CONTINUE TO MONITOR.
[2019-06-06 20:55] VITALS: BP 144/72
--- NOTE | 2019-06-06 23:00 | NUR ---
PT TEMP 100.9. NO SIGNS OF DISTRESS NOTED. GAVE PRN TYLENOL. WILL CONTINUE TO MONITOR.
--- NOTE | 2019-06-07 00:57 | NUR ---
PT RESTING IN BED COMFORTABLY, EATING SNACKS. PT DENIES PAIN. BREATHING EVEN AND UNLABORED. TEMP NOW 98.8. NO SIGNS OF DISTRESS AT THIS TIME. BED AT LOWEST POSITION. CALL LIGHT WITHIN REACH. WILL CONTINUE TO MONITOR.
--- NOTE | 2019-06-07 05:26 | NUR ---
PT RESTING IN BED WITH EYES CLOSED. NO S/S OF PAIN OR DISCOMFORT AT THIS TIME. BREATHING EVEN AND UNLABORED ON RA. NO SIGNIFICANT CHANGES THIS SHIFT. WILL ENDORSE TO DAY NURSE.
[2019-06-07 05:29] VITALS: BP 126/78
[2019-06-07 06:30] LABS: BASOPHIL % 0.6 % (0-2); PLATELET COUNT 148 x10^3mcL (130-400)
[2019-06-07 06:34] LABS: CALCIUM 7.9 mg/dL (8.5-10.1); CARBON DIOXIDE 25.7 mmol/L (21-32); CHLORIDE SERUM 108 mmol/L (98-107); CREATININE SERUM 0.9 mg/dL (0.7-1.3); GFR1 > 60 mL/min; GLUCOSE SERUM 89 mg/dL (74-106); POTASSIUM SERUM 3.4 mmol/L (3.5-5.1); SODIUM SERUM 141 mmol/L (136-145)
[2019-06-07 06:39] LABS: RED CELL DISTRIBUTION WIDTH 15.1 % (11.5-14.5)
--- NOTE | 2019-06-07 08:28 | NUR ---
AAO TIMES 3. MED SURG. LUNGS CTA. NO SOB. O2 SAT ON RA 94%. BS'S ACTIVE TIMES 4. [place], UP WITH GENERALIZED WEAKNESS, OOB WITH ASSIST. USES URINAL, URINE HELEN AND CLEAR. BS'S ACTIVE TIMES 4. PERIPHERAL PULSES PALPABLE. NO EDEMA. ERYTHEMA TO BUTTOCK/NIVIA AREA. HE TURNS HIMSELF WELL. COOPERATIVE.
[2019-06-07 09:45] VITALS: BP 134/43
--- NOTE | 2019-06-07 12:23 | NUR ---
Follow-up Nutrition Assessment: 236/B WHITNEY MOTA FU HR Dx: generalized weakness, hyponatremia PMHx: HIV/AIDS, HIV dementia, depression, Chronic Diarrhea, Skin Cancer Labs: (06/07) NA K 3.4L, CA 7.9L, WBC 5.7 WNL Meds: bactrim, phoslo, zofran Diet: Regular PO Intake: (06/06) lunch, breakfast - 100% each, dinner 75%, (06/05) 67% average Weights: (05/30) 70 kg, (06/02) 69 kg, (06/07) 71.8 kg Skin: erythema to buttocks, chris area Jose: 17 I/Os: (06/06) 2135/1650 (485) Edema: none GI: intermittent loose bowel movement Last BM: 06/05 RDN Visit (06/07): Patient said that his appetite is good and has been eating all of his meals. Patient said that he does not have any N/V and is trying to drink ensure ONS. 4-5 Ensure Enlive chocolate (flavor liked by patient) were lying by bedside unopened. Per progress note (06/07) Cultures on pending for Lp performed. Patient has been non-compliant with HIV/AIDS medication. Estimated Nutritional Needs Based on actual body weight 70 kg Energy: 6745-9755 kcal/d (30-35 kcal/kg) - AIDS Protein: 70-105 g/d (1.0-1.5 g/kg) - AIDS Fluid: 8375-7849 ml/d (1 ml/kcal) or per doctor Nutrition Diagnosis 1. Inadequate energy intake related to poor PO as evidenced by documented PO 0%. (improved- (06/06) lunch, breakfast - 100% each, weight gain- 2.8 kg x 5 days) 2. Altered GI function related to AIDS as evidenced by diarrhea. (improving- no N/V/D) Intervention 1. Recommend continuing regular diet. 2. D/C Ensure Enlive BID. Monitor/Evaluate Goal: Have pt meet at least 75% of estimated needs Monitor: PO intake, Labs, GI function F/U in 3-5 days as moderate risk 06/10-
--- NOTE | 2019-06-07 12:23 | NUR ---
1. Recommend continuing regular diet. 2. D/C Ensure Enlive BID.
[2019-06-07 17:29] VITALS: BP 115/71
--- NOTE | 2019-06-07 18:52 | NUR ---
AAO TIMES 4, FORGETFUL. MED SURG PATIENT. IV SITE CDI. COOPERATIVE. NO C/O PAIN. NO SOB. BROTHER CAME IN TO SEE HIM TODAY, HE BROUGHT A MEDICATION WE NEEDED FOR HIM TO TAKE, I BROUGHT IT TO PHARMACY. SLEEPING AND TALKING ON PHON MOST OF DAY.
--- NOTE | 2019-06-07 19:30 | NUR ---
PT A/O x4. [place] ON BOTH EARS. MED SURG. DENIES ANY CHEST PAIN OR PRESSURE. PULSES ARE PRESENT. NO EDEMA NOTED. LUNGS CLEAR IN ALL FEILDS. ON RA, DENIES ANY SOB. EQUAL CHEST RISE AND FALL. BOWEL SOUNDS PRESENT x4. DENIES ANY ABD DISTRESS. ERYTHEMA NOTED ON SCUTUM AND PERINEAL AREA. DENIES ANY PAIN AT THIS TIME. SALINE LOCKED ON RFA, INTACT AND PATENT. BED IS AT LOWEST SETTING. CALL LIGHT WITHIN REACH. WILL CONTINUE TO MONTIOR.
[2019-06-07 21:36] VITALS: BP 110/69
--- NOTE | 2019-06-08 03:31 | NUR ---
PT IS RESTING IN BED WITH BOTH EYES CLOSED. BREATHING EVEN AND UNALBORED. NO SIGN OF DISTRESS NOTED. BED IS AT LOWEST SETTING. CALL LIGHT WITHIN REACH. WILL CONTINUE TO MONTIOR.
[2019-06-08 05:42] VITALS: BP 96/59
[2019-06-08 06:42] LABS: BASOPHIL % 0.4 % (0-2); PLATELET COUNT 190 x10^3mcL (130-400)
[2019-06-08 06:55] LABS: RED CELL DISTRIBUTION WIDTH 15.4 % (11.5-14.5)
[2019-06-08 07:15] LABS: CALCIUM 7.6 mg/dL (8.5-10.1); CARBON DIOXIDE 25.8 mmol/L (21-32); CHLORIDE SERUM 108 mmol/L (98-107); CREATININE SERUM 0.9 mg/dL (0.7-1.3); GFR1 > 60 mL/min; GLUCOSE SERUM 95 mg/dL (74-106); POTASSIUM SERUM 3.9 mmol/L (3.5-5.1); SODIUM SERUM 141 mmol/L (136-145)
--- NOTE | 2019-06-08 07:54 | NUR ---
RECEIVED AWAKE, ALERT AND ORIENTED. IN NO RESP. DISTRESS. VS WNL. NO C/O PAIN OR DISCOMFORT AT THIS TIME. CALL LIGHT WITHIN REACH. WILL CONTINUE WITH PLAN OF CARE.
[2019-06-08 08:17] VITALS: BP 115/74
[2019-06-08 11:33] VITALS: BP 120/73
[2019-06-08 16:10] VITALS: BP 116/66
--- NOTE | 2019-06-08 16:12 | NUR ---
DOSING ON AND OFF, NO DISTRESS NOTED. DENIES PAIN OR DISCOMFORT.
--- NOTE | 2019-06-08 18:38 | NUR ---
REMAINS IN NO DISTRESS, RESTING IN BED. NO C/O PAIN OR DISCOMFORT AT THIS TIME. NO CHANGES IN VS. CALL LIGHT WITHIN REACH. WILL BE ENDORSED TO INCOMING SHIFT.
--- NOTE | 2019-06-08 20:00 | NUR ---
RECEIVED PT IN BED, RESTING QUIETLY IN BED. DENIES HEADACHE/DIZZINESS. RESP. EVEN AND UNLABORED. LUNG SOUNDS CLEAR. ON ROOM AIR, NO ACUTE DISTRESS NOTED. AFEBRILE AND VITAL SIGNS STABLE. DENIES CP OR ANY DISCOMFORT. HL TO RFA, INTACT AND PATENT. ABLE TO AMBULATE WITH A WALKER. ASSISTED WITH HS CARE. OPTIFOAM AND Z-GUARD APPLIED TO PERINEAL AND SCROTAL AREA. CALL LIGHT WITHIN REACH. WILL CONTINUE TO MONITOR.
[2019-06-08 20:48] VITALS: BP 115/71
--- NOTE | 2019-06-08 22:00 | NUR ---
HL OUT. NEW IV INSERTED TO RT ARM WITH #22G , HEPLOCKED. WILL CONTINUE TO MONITOR.
--- NOTE | 2019-06-09 01:08 | NUR ---
NO COMPLAINTS NOTED , RESTING QUIETLY , WITH EYES CLOSED. APPEARS ASLEEP, EASILY AROUSABLE. RESP. EVEN AND UNLABORED. ON ROOM AIR, NO ACUTE DISTRESS NOTED. WILL CONTINUE TO MONITOR.
[2019-06-09 05:13] VITALS: BP 109/54
--- NOTE | 2019-06-09 06:28 | NUR ---
SLEPT WELL. NO SIGNIFICANT CHANGE NOTED IN PT,S CONDITION. RESP. EVEN AND UNLABORED. NO ACUTE DISTRESS NOTED. DUE MEDS GIVEN ORDERED, JAVIER. WELL. AFEBRILE AND VITAL SIGNS STABLE. KEPT COMFORTABLE. WILL ENDORSE TO INCOMING NURSE.
[2019-06-09 07:14] LABS: CALCIUM 8.1 mg/dL (8.5-10.1); CARBON DIOXIDE 23.5 mmol/L (21-32); CHLORIDE SERUM 107 mmol/L (98-107); GFR1 > 60 mL/min; GLUCOSE SERUM 92 mg/dL (74-106); POTASSIUM SERUM 3.8 mmol/L (3.5-5.1); SODIUM SERUM 141 mmol/L (136-145)
--- NOTE | 2019-06-09 07:35 | NUR ---
SLEEPING BUT AROUSABLE. NO DISTRESS NOTED. NO C/O PAIN OR DISCOMFORT. VS WNL. CALL LIGHT WITHIN REACH. WILL CONTINUE WITH PLAN OF CARE.
[2019-06-09 07:38] LABS: BASOPHIL % 1.9 % (0-2); PLATELET COUNT 161 x10^3mcL (130-400)
[2019-06-09 08:00] LABS: RED CELL DISTRIBUTION WIDTH 15.5 % (11.5-14.5)
[2019-06-09 08:07] VITALS: BP 109/60
[2019-06-09] MEDS ORDERED: ZIT250 PO (11:08)
[2019-06-09] MEDS ORDERED: BACDS PO (11:09)
[2019-06-09] MEDS ORDERED: PHOS PO (11:11)
[2019-06-09] MEDS ORDERED: METP PO (11:13)
[2019-06-09 11:46] VITALS: BP 116/65
[2019-06-09 12:53] VITALS: BP 116/65
--- NOTE | 2019-06-09 13:55 | NUR ---
PT WILL BE DC'D HOME TODAY. HL REMOVED AND SITE WITH NO REDNESS OR SWELLING. PT IS WAITING FOR BROTHER FOR A RIDE HOME. IN NO DISTRESS, DENIES DISCOMFORT.
--- NOTE | 2019-06-09 14:23 | NUR ---
PT DC'D HOME IN NO ACUTE DISTRESS. AWAKE, ALERT. FOLLOWS COMMANDS. NO C/O PAIN OR DISCOMFORT. NO CHANGES IN VS. DC INSTRUCTIONS REVIEWED WITH PT AND BROTHER. THEY BOTH VERBALIZED UNDERSTANDING. RX GIVEN. PERSONAL BELONGINGS TAKEN HOME.
== END 2019-06-09 14:15 | disposition home or self-care (01) | DRG 974 ==
LOC: ED 23:02 → DU 05-30 01:28 → MU 05-30 01:28 → DU 05-30 02:13 → MU 06-01 12:21
PROVIDERS: Emergency Medicine; Internal Medicine; Internal Medicine Gastroenterology; ADMIT Internal Medicine
PROC: 0DBE8ZX Excision of Large Intestine, Via Natural or Artificial Opening Endoscopic, Diagnostic (ICD-10-PCS; 2019-06-02)
PROC: 0DBB8ZX Excision of Ileum, Via Natural or Artificial Opening Endoscopic, Diagnostic (ICD-10-PCS; principal; 2019-06-02 09:30)
PROC: 009U3ZX Drainage of Spinal Canal, Percutaneous Approach, Diagnostic (ICD-10-PCS; 2019-06-06)
DX: A41.9 Sepsis, unspecified organism (principal); E43 Unspecified severe protein-calorie malnutrition; B20 Human immunodeficiency virus [HIV] disease; N17.0 Acute kidney failure with tubular necrosis; E87.1 Hypo-osmolality and hyponatremia; E87.3 Alkalosis; G93.49 Other encephalopathy; N18.3 Chronic kidney disease, stage 3 (moderate); K52.9 Noninfective gastroenteritis and colitis, unspecified; F12.10 Cannabis abuse, uncomplicated; E86.0 Dehydration; F32.9 Major depressive disorder, single episode, unspecified; H91.90 Unspecified hearing loss, unspecified ear; Z66 Do not resuscitate; Z68.22 Body mass index [BMI] 22.0-22.9, adult; Z91.14 Patient's other noncompliance with medication regimen
CPT/HCPCS: 36600; 45378; 62272; 82962; 83880; 84439; 87046; 87046-59; 87116; 87206; G0378; G0480; J0456; J0744; J1200; J1610; J2250; J2270; J2310; J2405; J2543; J2765; J3010; J3370; J3480; J3490; J7030; J7050; Q0092